=== PATIENT | female | born 1950 | race Caucasian/White ===

== ENCOUNTER 2025-03-06 12:44 | Emergency (ER) | payer MEDICARE, BC, SELFPAY ==
[2025-03-06 12:48] VITALS: BP 133/85
--- NOTE | 2025-03-06 15:12 | ED.GENMED ---
History of Present Illness
General
Chief Complaint: Skin Surface Trauma
Source: patient
Exam Limitations: none
Time Seen by Provider: 03/06/25 14:26
History of Present Illness
History of Present Illness:
Patient had a piece of a bed fall on her heel. Large laceration noted. No distal numbness tingling or weakness. Tetanus is unsure but may be at 10 years.
Past History
Past History
ED Past Medical History: Asthma, Cancer and COPD
ED Past Surgical History: Gynecological and Orthopedic
Review of Systems
Review of Systems
All Other Systems: Not applicable
Phy Exam
Physical Exam
Physical Exam:
General: Nontoxic appearing in no distress
Skin: Warm and dry, no rash
Neuro: Alert, nontoxic, grossly nonfocal
Psychiatric: Good eye contact and appropriate
Musculoskeletal: 10 cm V-shaped laceration to the back of the heel along the Achilles tendon. Superficial flap. Motor or sensory neurovascular intact. Achilles is intact. Good plantarflexion dorsiflexion. Distal pulses good. Sensation intact.
Course
Orders/Labs/Results
Orders:
Orders
03/06/25 12:56
Ankle, left 3 view CR [CR Ankle - Left Min 3 Views ] Urgent
Comment:
Reason For Exam: laceration, crush injury
03/06/25 15:11
Cephalexin Monohydrate [Keflex] 500 mg PO NOW STA
Tetanus/Diphth/Acelpertussis [Adacel] 0.5 ml IM .ONCE ONE
Vital Signs
Initial and Last Documented VS:
Initial Vital Signs
Temp Pulse Resp BP Pulse Ox
97.5 F 92 18 133/85 97
03/06/25 12:48 03/06/25 12:48 03/06/25 12:48 03/06/25 12:48 03/06/25 12:48
Last Documented Vital Signs
Temp Pulse Resp BP Pulse Ox
97.5 F 96 20 143/69 98
03/06/25 12:48 03/06/25 15:30 03/06/25 15:30 03/06/25 15:30 03/06/25 15:30
Procedures
Laceration Closure
Left Posterior Foot:
Status of Wound: clean
Size of Wound in cm: 10
Description of Wound Edges: sharp
Preparation: cleaned with saline and cleaned with Betadine
Anesthesia: 1% Lidocaine with epi
Revision/Debridement: minor revision
Wound exploration: explored to base- no FB and no tendon involvement (But wound was down to the tendon)
Type of Closure: single layer closure and mattress sutures
Skin Closure Material: 4-0 nylon
Number of sutures: 17
*Radiology
Radiology exam reviewed: radiology read reviewed (Negative)
*Pulse Oximetry
Patient hypoxic: no
*Critical Care Note
Total Time (30-74mins, 75-104mins- exclusive of procedures): Not Applicable
Update Note
Update Note:
Tendon intact. Copious irrigation. Given that there is down to the tendon however I will cover with antibiotics.
ED Attending Note
-
Portions of this chart may have been created with voice recognition software.� Occasional wrong word or��sound alike� substitutions may have occurred due to the inherent limitations of voice recognition software.
Discharge Plan
Departure
Patient Disposition: Home (Routine Discharge)
Date of Disposition: 03/06/25
Time of Disposition: 15:14
Patient with high blood pressure during this ER visit?: Yes
Discharge Problem:
Large left heel laceration
Instructions: Laceration Repair With Stitches (DC), BLOOD PRESSURE
Prescriptions:
New
cephalexin 500 mg capsule
500 mg PO TID 7 Days Qty: 21 0RF
Referrals:
UNKNOWN - PT DOES,NOT KNOW [Family Provider] -
Activity Restrictions/Additional Instructions:
Suture removal in 10 days
Get wound rechecked in 2 to 3 days
The prescription was sent to your pharmacy
Change dressing daily
As we discussed, try to let the wound air out at times
Interventions
Interventions:
*Risk Screen - Suicide Last Done: 03/06/25 12:51
*General Assessment Last Done: 03/06/25 12:51
*Neglect/Abuse Screening Last Done: 03/06/25 13:18
*ED- Fall Risk Assessment Last Done: 03/06/25 13:18
*ED COVID-19 Vaccine History Last Done: 03/06/25 13:18
*Nursing Disposition Last Done: 03/06/25 15:33
ED-Skin Assessment Last Done: 03/06/25 13:18
Discharge Date and Time
Discharge Date/Time: 03/06/25 15:35
Print Language: KAZAKH
[2025-03-06] MEDS: KEFLEX 500 MG PO (15:21)
[2025-03-06] MEDS: ADACEL 0.5 ML IM (15:22)
[2025-03-06 15:30] VITALS: BP 143/69
== END 2025-03-06 15:35 | disposition home or self-care (01) ==
LOC: EMR 12:44
PROVIDERS: EMERGENCY PHYSICIAN Emergency Medicine
DX: S91.312A Laceration without foreign body, left foot, initial encounter (principal); W20.8XXA Other cause of strike by thrown, projected or falling object, initial encounter; R03.0 Elevated blood-pressure reading, without diagnosis of hypertension; Z23 Encounter for immunization; J44.89 Other specified chronic obstructive pulmonary disease; Z85.9 Personal history of malignant neoplasm, unspecified
CPT/HCPCS: 12044; 99283; 90471; 73610; 90715

== ENCOUNTER 2025-03-08 18:12 | Emergency (ER) | payer MEDICARE, BC, SELFPAY ==
[2025-03-08 18:13] VITALS: BP 119/78
[2025-03-08] MEDS: VIBRAMYCIN 100 MG PO (18:57)
--- NOTE | 2025-03-08 18:59 | ED.GENMED ---
History of Present Illness
General
Chief Complaint: Wound Check/Suture Removal
Source: patient
Exam Limitations: none
Time Seen by Provider: 03/08/25 18:33
Nursing documentation reviewed up to this point in time: agreed with
History of Present Illness
History of Present Illness:
74-year-old female with history as noted presents to the emergency room for wound check. Patient sustained a left heel laceration on the corner of her bed 2 days ago and was seen in this emergency room and had sutures (17 sutures per procedure
note). She says that the area has been purpleish red but she has not had any drainage. She does have some localized swelling. She says she was told to return for wound check and so she came back for reassessment. She denies fevers or chills or
any other complaints. She has been on Keflex 500 mg 3 times daily for prophylaxis.
Past History
Past History
ED Past Medical History: Asthma, Cancer and COPD
ED Past Surgical History: Gynecological and Orthopedic
Review of Systems
Review of Systems
All Other Systems: ROS reviewed and negative except as documented in HPI and ROS
Skin: Reports other (Redness, bruising, swelling your laceration)
Phy Exam
Physical Exam
Physical Exam:
General: Awake, alert; no acute distress
Head: Normocephalic, atraumatic
Eyes: Conjunctiva normal
Throat: Airway intact, handling secretions
Neck: Trachea midline
Lungs: Breathing comfortably no distress
Heart: Regular rate
Neuro: No gross deficits
Skin: Patient has approximately 10 cm laceration extending posterior to the lower calf�essentially extends in a semicircular from the lateral malleolus towards the medial malleolus; sutures in place with good approximation; there is no drainage or
discharge from the wound; skin of the foot and ankle is mildly edematous and slightly warm; minimally tender; the skin is purplish red in color with bruising in the dependent areas of the foot and ankle (pictures below)
Scores
Heart Failure Risk
Heart Failure Risk Score: Not Applicable
Heart Score for Chest Pain Patients
STEMI patient?: Not applicable
Withdrawal Assessment of Alcohol
Withdrawal Assessment Completed?: Not applicable
Course
Orders/Labs/Results
Orders:
Orders
03/08/25 18:48
Doxycycline [Vibramycin] 100 mg PO NOW STA
Vital Signs
Initial and Last Documented VS:
Initial Vital Signs
Temp Pulse Resp BP Pulse Ox
36.8 C 68 16 119/78 100
03/08/25 18:13 03/08/25 18:13 03/08/25 18:13 03/08/25 18:13 03/08/25 18:13
Last Documented Vital Signs
Temp Pulse Resp BP Pulse Ox
36.8 C 68 16 119/78 100
03/08/25 18:13 03/08/25 18:13 03/08/25 18:13 03/08/25 18:13 03/08/25 18:13
MDM/Problems Addressed
Differential Diagnosis Includes:
Infection, posttraumatic changes
MDM/Problems Addressed:
74-year-old female presents with swelling, discoloration near area of recent laceration�she presented for a wound check as instructed after extensive laceration repair 2 days ago. No drainage, minimal pain but there is some discoloration as
described above. I suspect that most of the findings today are posttraumatic changes rather than acute infection�the laceration itself appears clean and there is no drainage. There is some purpleish red discoloration of the skin in the foot and
ankle but this appears more posttraumatic rather than infectious. She has been on Keflex prophylactically-- will add Doxy for MRSA coverage and I think we can follow this as an outpatient. She feels very comfortable with this. I did speak to her
about return precautions including advising her to return to the emergency room in 2 to 3 days if she has not noticed some improvement or if she notices any worsening. She already has an appointment scheduled for suture removal with her primary
doctor next week. All questions answered.
*Pulse Oximetry
Patient hypoxic: no
*Critical Care Note
Total Time (30-74mins, 75-104mins- exclusive of procedures): Not Applicable
Data Reviewed
Source: patient
ED Attending Note
-
Portions of this chart may have been created with voice recognition software.� Occasional wrong word or��sound alike� substitutions may have occurred due to the inherent limitations of voice recognition software.
Discharge Plan
Departure
Patient Disposition: Home (Routine Discharge)
Patient with high blood pressure during this ER visit?: No
Discharge Problem:
Visit for wound check
Instructions: Stitches Removal
Prescriptions:
New
doxycycline hyclate 100 mg tablet
100 mg PO BID Qty: 14 0RF
No Action
cephalexin 500 mg capsule
500 mg PO TID 7 Days Qty: 21 0RF
Referrals:
NONE,* [Family Provider] -
Activity Restrictions/Additional Instructions:
You should monitor your foot very closely�if you notice that it is becoming more red, swollen or painful or if you notice drainage you should return to the emergency room. If you do not notice some improvement in the next 2 or 3 days you should
return to the emergency to be reassessed. You must have your sutures removed in a week regardless as we discussed.
Thank you for visiting the Emergency Department at [facility].
1. Please schedule a follow up appointment as directed. Call first thing tomorrow morning to make an appointment.
2. If indicated, please take your medications as instructed and indicated on discharge paperwork.
3. If any of your symptoms do not improve, or persist, or become more severe within 6-12 hours, please return to the emergency department for further care.
4. Please return to the emergency department if you develop a headache, neck pain/stiffness, fever greater than 100.4F, chest pain, shortness of breath, persistent nausea, vomiting, slurred speech, difficulty walking, numbness/tingling, weakness,
signs of infection or any other symptoms that are worrisome to you.
Please call [phone] if you have any questions.
Interventions
Interventions:
*Risk Screen - Suicide Last Done: 03/08/25 18:16
*General Assessment Last Done: 03/08/25 18:16
*Neglect/Abuse Screening Last Done: 03/08/25 18:16
*ED- Fall Risk Assessment Last Done: 03/08/25 18:25
*ED COVID-19 Vaccine History Last Done: 03/08/25 18:25
*Nursing Disposition Last Done: 03/08/25 18:59
ED-Skin Assessment Last Done: 03/08/25 18:25
Discharge Date and Time
Discharge Date/Time: 03/08/25 19:00
Print Language: CAMEROONIAN
== END 2025-03-08 19:00 | disposition home or self-care (01) ==
LOC: EMR 18:12
PROVIDERS: EMERGENCY PHYSICIAN Emergency Medicine
DX: Z48.01 Encounter for change or removal of surgical wound dressing (principal); M79.89 Other specified soft tissue disorders; J44.89 Other specified chronic obstructive pulmonary disease; Z85.3 Personal history of malignant neoplasm of breast
CPT/HCPCS: 99283

== ENCOUNTER 2025-03-10 16:33 | Emergency (ER) | payer MEDICARE, BC, SELFPAY ==
[2025-03-10 16:34] VITALS: BMI 18.3
[2025-03-10 16:38] VITALS: BP 123/68
--- NOTE | 2025-03-10 18:50 | ED.GENMED ---
History of Present Illness
General
Chief Complaint: Wound Check/Suture Removal
Source: patient
Exam Limitations: none
Time Seen by Provider: 03/10/25 18:11
Nursing documentation reviewed up to this point in time: agreed with
History of Present Illness
History of Present Illness:
Patient is a 74-year-old female with history of hypothyroid presenting to the emergency department for wound check. Patient sustained a laceration to her left ankle 4 days ago and was seen in the emergency department she underwent primary closure
with sutures. At that time�she was started on Keflex. Patient return to the emergency department 2 days ago for wound check or doxycycline added to antibiotic regimen.
Patient presents today as she has concerns of some discoloration around wound. She reports a small amount of drainage earlier today. She has been keeping wound clean, dry, and covered. Patient denies any fevers or chills. She denies any
numbness/tingling in affected foot/ankle.
Patient is planned to travel back to [place] tomorrow she lives full-time and wants to ensure that she is safe for travel. She is planning to have sutures removed by her primary care provider in [place] on Thursday.
Past History
Past History
ED Past Medical History: Asthma, Cancer and COPD
ED Past Surgical History: Gynecological and Orthopedic
Review of Systems
Review of Systems
Allergies reviewed?: Yes
All Other Systems: ROS reviewed and negative except as documented in HPI and ROS
Phy Exam
Physical Exam
Physical Exam:
Vitals: Patient's vital signs are stable. Afebrile
General: Patient is well appearing, no acute distress
Skin: Approximately 10 cm healing laceration of left lower extremity overlying left heel in a semicircular shape. Sutures in place with good skin approximation and no drainage from wound. No red streaking. Minimal surrounding erythema and
ecchymoses of left ankle/foot�appears improved from most recent visit (pictures below). Patient has excellent sensation in left ankle/foot with normal capillary refill.
Head: Normocephalic, atraumatic
Throat: Protecting airway
Neck: Normal ROM, no cervical spine tenderness
Cardiac: Regular rate
Pulm: No apparent respiratory distress
Abdomen: Nondistended
Extremities: Healing laceration to left ankle/heel as described above, pictures below
Neuro: Grossly intact
Psychiatric: Normal affect.
Course
Vital Signs
Initial and Last Documented VS:
Initial Vital Signs
Temp Pulse Resp BP Pulse Ox
98.7 F 92 18 123/68 96
03/10/25 16:38 03/10/25 16:38 03/10/25 16:38 03/10/25 16:38 03/10/25 16:38
Last Documented Vital Signs
Temp Pulse Resp BP Pulse Ox
98.7 F 92 18 123/68 96
03/10/25 16:38 03/10/25 16:38 03/10/25 16:38 03/10/25 16:38 03/10/25 16:38
MDM/Problems Addressed
Differential Diagnosis Includes:
Not limited to: Wound check, cellulitis, contact dermatitis, etc.
MDM/Problems Addressed:
74-year-old female with laceration of left ankle presenting for wound check. She has concerns with mild discoloration and minimal drainage earlier today. No fevers, chills, numbness/tingling in affected extremity. Vitals and physical exam as
above. Patient has a well-healing laceration to her left ankle with minimal surrounding erythema and dependent ecchymoses of left foot. There is no current drainage from wound or red streaking. In comparison to photos taken in the ED and wound
check visit on Thursday�wound actually appears improved. No indication for IV antibiotics.
Ultimately�feel patient stable for travel back to [place] tomorrow. Advised to follow-up with primary care on Thursday as scheduled and advised very close return precautions to local emergency department [place] if needed. Did review antibiotic
directions with patient�Keflex 3 times daily, doxycycline twice daily. Advised to complete both courses as directed. Wound care instructions discussed. Patient comfortable with plan for discharge
Chronic conditions affecting care:
N/A
Acute Exacerbation and/or Progression of Chronic Illness:
N/A
*Pulse Oximetry
Patient hypoxic: no
*EKG
Interpreted by ED Provider?: NA
*Lead Engineer Interpretation
Rate: Lead Engineer- N/A
*Critical Care Note
Total Time (30-74mins, 75-104mins- exclusive of procedures): Not Applicable
Data Reviewed
Review of Other/Old Records Reveals: Records (Emergency department visit from 03/08/2025 for wound check-reviewed pictures)
ED Attending Note
-
Portions of this chart may have been created with voice recognition software.� Occasional wrong word or��sound alike� substitutions may have occurred due to the inherent limitations of voice recognition software.
Discharge Plan
Departure
Patient Disposition: Home (Routine Discharge)
Date of Disposition: 03/10/25
Time of Disposition: 18:44
Patient with high blood pressure during this ER visit?: No
Condition: Good
Discharge Problem:
Visit for wound check
Instructions: Wound Care (DC), Stitches and shawna
Prescriptions:
No Action
cephalexin 500 mg capsule
500 mg PO TID 7 Days Qty: 21 0RF
doxycycline hyclate 100 mg tablet
100 mg PO BID Qty: 14 0RF
Referrals:
NONE,* [Family Provider] -
Activity Restrictions/Additional Instructions:
RETURN TO THE EMERGENCY DEPARTMENT WITH ANY FEVERS, CHILLS, NUMBNESS/TINGLING IN LEFT LOWER EXTREMITY, SIGNIFICANT REDNESS, SWELLING, PURULENT DRAINAGE FROM WOUND, WORSENING IN CURRENT SYMPTOMS, OR ANY OTHER CONCERNS
- As discussed that your wound appears to be healing well. You should continue to keep wound covered, clean, and dry until sutures are removed this Thursday with your primary care provider.
- Continue to take antibiotics as prescribed. You should take the cephalexin 3 times per day. You should take the doxycycline twice a day.
Monitor your symptoms closely and return to the emergency department with any acute worsening/new symptoms or any signs of infection
Interventions
Interventions:
*Risk Screen - Suicide Last Done: 03/10/25 16:38
*General Assessment Last Done: 03/10/25 16:38
*Neglect/Abuse Screening Last Done: 03/10/25 16:38
*ED- Fall Risk Assessment Last Done: 03/10/25 17:40
*ED COVID-19 Vaccine History Last Done: 03/10/25 18:49
*Nursing Disposition Last Done: 03/10/25 18:55
ED-Skin Assessment Last Done: 03/10/25 17:39
Discharge Date and Time
Discharge Date/Time: 03/10/25 18:56
Print Language: MAURITIAN
== END 2025-03-10 18:56 | disposition home or self-care (01) ==
LOC: EMR 16:33
PROVIDERS: EMERGENCY PHYSICIAN Student in an Organized Health Care Education/Training Program
DX: Z48.00 Encounter for change or removal of nonsurgical wound dressing (principal); E03.9 Hypothyroidism, unspecified
CPT/HCPCS: 99281

== ENCOUNTER 2025-03-31 13:26 | Emergency (ER) | payer MEDICARE, BC, SELFPAY ==
[2025-03-31 13:32] VITALS: BP 115/66
[2025-03-31 13:57] LABS: % Basophils 0.7 % (0-2); % Eosinophils 3.4 % (0-6); % Immature Granulocytes 0.3 % (0-0.5); % Lymphocytes 12.1 % (20.5-51.1); % Monocytes 10.1 % (1.7-9.3); % Neutrophils 73.4 % (42.2-75.2); Absolute Basophils 0.1 10^3/uL (0-0.2); Absolute Eosinophils 0.2 10^3/uL (0-0.7); Absolute Lymphocytes 0.9 10^3/uL (1.2-3.4); Absolute Monocytes 0.7 10^3/uL (0.1-0.6); Absolute Neutrophils 5.2 10^3/uL (1.4-6.5); Hematocrit 35.4 % (37.0-47.0); Hemoglobin 11.3 g/dL (12.0-16.0); Mean Corp Hgb Conc. 31.9 g/dL (33.0-37.0); Mean Corpuscular Hgb 28.1 pg (27.0-31.0); Mean Corpuscular Volume 88.1 fL (81.0-99.0); Mean Platelet Volume 9.4 fL (7.4-10.4); Nucleated Red Blood Cells % 0 %; Platelet Count 337 10^3/uL (130-400); Red Blood Cell Count 4.02 10^6/uL (4.20-5.40); Red Cell Dist. Width 14.4 % (11.5-14.5); White Blood Cell Count 7.1 10^3/uL (4.8-10.8)
[2025-03-31 14:30] LABS: ALT (SGPT) 19 U/L (0-35); AST (SGOT) 18 U/L (14-36); Albumin 3.7 g/dl (3.5-5.0); Alkaline Phosphatase 97 U/L (38-126); Blood Urea Nitrogen 25 mg/dl (7-17); Carbon Dioxide 23 mmol/L (22-30); Chloride 109 mmol/L (98-107); Glucose 131 mg/dl (70-99); Potassium 4.3 mmol/L (3.5-5.1); Sodium 138 mmol/L (135-145); Total Bilirubin 0.3 mg/dl (0.2-1.3); Total Protein 6.3 g/dl (6.3-8.2); eGFR > 60.00
--- NOTE | 2025-03-31 16:03 | ED.GENMED ---
History of Present Illness
General
Chief Complaint: Rectal Bleeding
Source: patient
Exam Limitations: none
Time Seen by Provider: 03/31/25 15:44
Nursing documentation reviewed up to this point in time: agreed with
History of Present Illness
History of Present Illness:
74 yo female her for black stools past 2 days. Hx GERD, Takes Advil 400 mg daily for past 2 months for neck and shoulder pain. Stomach has been bothering her so also started Pepto Bismol 3 days ago. Denies feeling lightheaded, denies abdominal pain.
Past History
Past History
ED Past Medical History: Asthma, Cancer (breast), COPD and Hypothyroidism
ED Past Surgical History: Gynecological (L mastectomy 1990) and Orthopedic
Review of Systems
Review of Systems
Allergies reviewed?: Yes
All Other Systems: ROS reviewed and negative except as documented in HPI and ROS
Constitutional: Denies fever or fatigue
Respiratory: Denies trouble breathing
Cardiac: Denies chest pain
ABD/GI: Reports black stools; Denies abdominal pain, nausea, vomiting, diarrhea or anorexia
: Denies dysuria or difficulty voiding
Musculoskeletal: Reports no symptoms
Skin: Reports no symptoms
Neurological: Reports no symptoms
Phy Exam
Physical Exam
Physical Exam:
GENERAL: No acute distress. A&Ox3.
CONSTITUTIONAL: Afebrile.
EYES: clear, conjunctivae normal
ENMT: moist mucus membranes
RESPIRATORY: Regular respirations, nonlabored, lungs clear.
CARDIOVASCULAR: Regular rate and rhythm, no murmurs, no rubs.
GI: Soft, nontender, normal BS
Rectal: black soft stool, heme negative
MUSCULOSKELETAL: Moves with ease. Well perfused.
SKIN: Warm, dry, pink
PSYCH: Normal mood and affect. Well kept, interactive and appropriate
NEUROLOGIC: Awake, alert and oriented. No focal neurological deficits
Course
Orders/Labs/Results
Orders:
Orders
03/31/25 13:41
Complete Blood Count/With Diff Urgent
Comprehensive Metabolic Panel Urgent
Abnormal Lab Results
03/31/25
13:41
RBC 4.02 L 10^6/uL
(4.20-5.40)
Hgb 11.3 L g/dL
(12.0-16.0)
Hct 35.4 L %
(37.0-47.0)
MCHC 31.9 L g/dL
(33.0-37.0)
Absolute Lymphs (auto) 0.9 L 10^3/uL
(1.2-3.4)
Absolute Monos (auto) 0.7 H 10^3/uL
(0.1-0.6)
Lymphocytes % 12.1 L %
(20.5-51.1)
Monocytes % 10.1 H %
(1.7-9.3)
Chloride 109 H mmol/L
(98-107)
BUN 25 H mg/dl
(7-17)
Glucose 131 H mg/dl
(70-99)
03/31/25 13:41
03/31/25 13:41
Vital Signs
Initial and Last Documented VS:
Initial Vital Signs
Temp Pulse Resp BP Pulse Ox
97.8 F 73 16 115/66 97
03/31/25 13:32 03/31/25 13:32 03/31/25 13:32 03/31/25 13:32 03/31/25 13:32
Last Documented Vital Signs
Temp Pulse Resp BP Pulse Ox
97.8 F 73 16 115/66 97
03/31/25 13:32 03/31/25 13:32 03/31/25 13:32 03/31/25 13:32 03/31/25 13:32
MDM/Problems Addressed
Differential Diagnosis Includes:
GI bleed, medication side effect
MDM/Problems Addressed:
74 yo female her for black stools past 2 days. Hx GERD, Takes Advil 400 mg daily for past 2 months for neck and shoulder pain. Stomach has been bothering her so also started Pepto Bismol 3 days ago. Denies feeling lightheaded, denies abdominal pain.
Afebrile NAD
CBC, CMP with no clinically significant abnormalities.
Rectal exam: black soft stool, Heme neg.
Discoloration from Pepto Bismol, pt reassured
She has appointment with new PCP in one week.
*Critical Care Note
Total Time (30-74mins, 75-104mins- exclusive of procedures): Not Applicable
ED Attending Note
-
Portions of this chart may have been created with voice recognition software.� Occasional wrong word or��sound alike� substitutions may have occurred due to the inherent limitations of voice recognition software.
Discharge Plan
Departure
Patient Disposition: Home (Routine Discharge)
Date of Disposition: 03/31/25
Time of Disposition: 16:08
Patient with high blood pressure during this ER visit?: No
Condition: Good
Discharge Problem:
Medication side effect, Black stools
Prescriptions:
No Action
cephalexin 500 mg capsule
500 mg PO TID 7 Days Qty: 21 0RF
doxycycline hyclate 100 mg tablet
100 mg PO BID Qty: 14 0RF
Activity Restrictions/Additional Instructions:
As we discussed, nothing worrisome in your workup here today.
Pepto-Bismol can turn your stools black and I believe that is the cause of your black stools.
Your blood work shows nothing worrisome
Keep your appointment next week with your new doctor
Discussed your use of ibuprofen/Advil with your new doctor
Interventions
Interventions:
*Risk Screen - Suicide Last Done: 03/31/25 13:32
*General Assessment Last Done: 03/31/25 15:59
*Neglect/Abuse Screening Last Done: 03/31/25 13:32
*Nursing Disposition Last Done: 03/31/25 16:43
[facility] Assessment Last Done: 03/31/25 15:59
Discharge Date and Time
Discharge Date/Time: 03/31/25 16:44
Print Language: GHANAIAN
== END 2025-03-31 16:44 | disposition home or self-care (01) ==
LOC: EMR 13:26
PROVIDERS: EMERGENCY PHYSICIAN Emergency Medicine
DX: K92.1 Melena (principal); T50.905A Adverse effect of unspecified drugs, medicaments and biological substances, initial encounter; Y92.9 Unspecified place or not applicable; K21.9 Gastro-esophageal reflux disease without esophagitis; J45.909 Unspecified asthma, uncomplicated; J44.9 Chronic obstructive pulmonary disease, unspecified; E03.9 Hypothyroidism, unspecified; Z90.12 Acquired absence of left breast and nipple
CPT/HCPCS: 99283; 80053; 85025

== ENCOUNTER → 2025-05-03 09:38 | Outpatient (REF) | payer MEDICARE, BC, SELFPAY | LOC: RAD 09:38 | PROVIDERS: ATTENDING PHYSICIAN Nurse Practitioner Family | DX: M81.8 Other osteoporosis without current pathological fracture (principal) | CPT/HCPCS: 77080 ==

== ENCOUNTER 2025-06-19 06:35 | Day surgery (SDC) | payer MEDICARE, BC, SELFPAY | END 2025-06-19 15:18 | disposition home or self-care (01) | LOC: GI 06:35 | PROVIDERS: ATTENDING PHYSICIAN Internal Medicine Gastroenterology | DX: R12 Heartburn (principal); K22.2 Esophageal obstruction; K44.9 Diaphragmatic hernia without obstruction or gangrene | CPT/HCPCS: 43235 ==

== ENCOUNTER → 2025-07-28 09:16 | Outpatient (REF) | payer MEDICARE, BC, SELFPAY | LOC: REG 09:16 | PROVIDERS: ATTENDING PHYSICIAN Nurse Practitioner Family | DX: Z51.81 Encounter for therapeutic drug level monitoring (principal) | CPT/HCPCS: 36415 ==

== ENCOUNTER 2025-07-31 12:30 | Outpatient (RCR) | payer MEDICARE, BC, SELFPAY ==
[2025-07-31 13:20] VITALS: BP 112/64
[2025-07-31] MEDS: RECLAST 100 IV (13:26)
[2025-07-31 14:16] VITALS: BP 113/45
== END 2025-08-01 09:58 | disposition home or self-care (01) ==
LOC: OID 12:30
PROVIDERS: ATTENDING PHYSICIAN Nurse Practitioner Family
DX: M81.8 Other osteoporosis without current pathological fracture (principal)
CPT/HCPCS: 96365; J3489